=== PATIENT | male | born 1955 | race American Indian/Alaskan Native ===

== ENCOUNTER 2018-02-16 07:47 | Emergency (ER) | payer SELFPAY ==
--- NOTE | 2018-02-16 11:09 | XRay Report ---
FINAL REPORT EXAM: XR FOOT 3+V LT HISTORY: lt TOE PAIN. STUBBED IT TECHNIQUE: AP, oblique and lateral radiographs of the left foot. PRIORS: None. FINDINGS: No fracture. No dislocation. There is diffuse osteopenia. Degenerative changes of the 1st MTP joint are seen. Orthopedic screws are seen through the medial malleolus. No soft tissue abnormality. A plantar calcaneal spur is seen. IMPRESSION: No acute left foot abnormality.
--- NOTE | 2018-02-16 11:58 | Emergency Department Report ---
ED Lower Extremity HPI - General Chief Complaint: Extremity Problem,Nontraumatic Stated Complaint: FOOT PAIN Time Seen by Provider: 02/16/18 09:07 Source: patient Mode of arrival: Ambulatory Limitations: No Limitations - History of Present Illness MD Complaint: foot injury (reports stubbing his left second toe 2 days ago and having dull, throbbing pain since that time. Presents emergency department for evaluation of the wound) -: Gradual Type of Injury: blunt Place: home Severity: moderate Severity scale (0 -10): 5 Improves With: cold therapy Worsens With: weight bearing, movement, palpation Context: direct blow Associated Symptoms: swelling, able to partially bear weight, ambulatory. denies: numbness, tingling Treatments Prior to Arrival: cold therapy - Related Data Allergies Allergy/AdvReac Type Severity Reaction Status Date / Time No Known Allergies Allergy Unverified 02/16/18 08:08 ED Review of Systems ROS: Stated complaint: FOOT PAIN Other details as noted in HPI Constitutional: denies: chills, fever Eyes: denies: eye pain, eye discharge, vision change ENT: denies: ear pain, throat pain Respiratory: denies: cough, shortness of breath, wheezing Cardiovascular: denies: chest pain, palpitations Endocrine: no symptoms reported Gastrointestinal: denies: abdominal pain, nausea, diarrhea Genitourinary: denies: urgency, dysuria Musculoskeletal: denies: back pain, joint swelling, arthralgia Skin: denies: rash, lesions Neurological: denies: headache, weakness, paresthesias Psychiatric: denies: anxiety, depression Hematological/Lymphatic: denies: easy bleeding, easy bruising ED Past Medical Hx - Past Medical History Hx Diabetes: Yes - Surgical History Past Surgical History?: Yes Additional Surgical History: surgery to left ankle s/t fracture 03/2017 - Social History Smoking Status: Current Every Day Smoker Substance Use Type: None ED Physical Exam - General Limitations: No Limitations General appearance: alert, in no apparent distress - Head Head exam: Present: atraumatic, normocephalic - Eye Eye exam: Present: normal appearance - ENT ENT exam: Present: mucous membranes moist - Neck Neck exam: Present: normal inspection - Respiratory Respiratory exam: Present: normal lung sounds bilaterally. Absent: respiratory distress - Cardiovascular Cardiovascular Exam: Present: regular rate, normal rhythm. Absent: systolic murmur, diastolic murmur, rubs, gallop - GI/Abdominal GI/Abdominal exam: Present: soft, normal bowel sounds - Rectal Rectal exam: Present: deferred - Extremities Exam Extremities exam: Present: normal inspection, tenderness (the left second toe with some mild swelling. No skin abrasion. No deformity. There is a callus to the dorsum of the toe), normal capillary refill. Absent: calf tenderness - Back Exam Back exam: Present: normal inspection. Absent: CVA tenderness (R), CVA tenderness (L), muscle spasm, paraspinal tenderness - Neurological Exam Neurological exam: Present: alert, oriented X3, CN II-XII intact - Psychiatric Psychiatric exam: Present: normal affect, normal mood - Skin Skin exam: Present: warm, dry, intact, normal color. Absent: rash ED Course Vital Signs 02/16/18 08:05 Temperature 98.1 F Pulse Rate 83 Respiratory 16 Rate Blood Pressure 147/85 O2 Sat by Pulse 98 Oximetry Critical care attestation.: If time is entered above; I have spent that time in minutes in the direct care of this critically ill patient, excluding procedure time. ED Disposition Clinical Impression: Contusion, toe Disposition: DC-01 TO HOME OR SELFCARE Is pt being admited?: No Does the pt Need Aspirin: No Condition: Stable Instructions: Foot Contusion (ED), Contusion in Adults (ED) Referrals: [facility] [Provider Group] - 3-5 Days
[2018-02-16 12:15] VITALS: BP 142/82
== END 2018-02-16 12:14 | disposition home or self-care (01) ==
LOC: ED 07:47
DX: S90.122A Contusion of left lesser toe(s) without damage to nail, initial encounter (principal); E11.9 Type 2 diabetes mellitus without complications; F17.200 Nicotine dependence, unspecified, uncomplicated; W01.198A Fall on same level from slipping, tripping and stumbling with subsequent striking against other object, initial encounter; Y93.89 Activity, other specified; Y92.89 Other specified places as the place of occurrence of the external cause; Y99.8 Other external cause status
CPT/HCPCS: 99283